=== PATIENT | male | born 1955 | race Caucasian/White ===

== ENCOUNTER 2018-12-31 23:05 | Inpatient (IN) ==
[2018-12-31] MEDS ORDERED: SODIUM CHLORIDE 0.9% 1000ML 1,000 ML IV ONE (23:36)
[2018-12-31] MEDS ORDERED: ONDANSETRON INJ 2 MG/ML 2 ML VIAL IV STA (23:36)
[2018-12-31] MEDS ORDERED: PROMETHAZINE 25 MG/51 ML BAG IV STA (23:36)
[2018-12-31 23:55] LABS: Hemoglobin 12.1 g/dL (14.0-18.0); Immature Granulocytes # (auto) 0.02 K/uL (0.00-0.02); Immature Granulocytes % (auto) 0.2 %; Lymphocytes # (auto) 0.75 K/uL (1.2-3.4); Lymphocytes % (auto) 9.2 %; Mean Corpuscular Hemoglobin 28.5 pg (25-34); Mean Corpuscular Hgb Conc 36.7 g/dL (32-36); Mean Corpuscular Volume 77.6 fL (80-100); Mean Platelet Volume 8.9 fL (7.4-10.4); Monocytes # (auto) 0.73 K/uL (0.11-0.59); Neutrophils # (auto) 6.61 K/uL (1.4-6.5); Neutrophils % (auto) 81.6 %; Platelet Count 196 K/uL (130-400); RDW Coefficient of Variation 12.9 % (11.5-14.5); RDW Standard Deviation 36.4 fL (36.4-46.3); Red Blood Count 4.25 M/uL (4.7-6.1); White Blood Count 8.11 K/uL (4.8-10.8)
[2019-01-01 00:27] LABS: Alanine Aminotransferase 51 U/L (12-78); Albumin Level 3.3 gm/dl (3.4-5.0); Alkaline Phosphatase 96 U/L (45-117); Bilirubin,Total 2.5 mg/dl (0.2-1); Blood Urea Nitrogen 13 mg/dl (7-18); Calcium 8.4 mg/dl (8.5-10.1); Carbon Dioxide 25 mmol/L (21-32); Chloride 74 mmol/L (98-107); Creatinine Clr Calc Pharmacy 99.9 ml/min; Est GFR (African American) 102.9; Est GFR (Non-African American) 88.8; Glucose 126 mg/dl (70-99); Lipase 52 U/L (73-393); Sodium 110 mmol/L (136-145); Troponin I < 0.015 ng/ml (0-0.045)
[2019-01-01 01:07] LABS: Bilirubin Direct 0.7 mg/dl (0-0.2); Potassium 3.7 mmol/L (3.5-5.1)
[2019-01-01] MEDS ORDERED: LORazepam 1 MG/2 ML VIAL IV STA (01:07)
[2019-01-01] MEDS ORDERED: IOVERSOL 100ml IV PRN (01:22)
[2019-01-01] MEDS ORDERED: HALOPERIDOL LACTATE 5 MG/ML 1 ML VIAL IM STA ×2 (02:00→02:52)
[2019-01-01] MEDS: HALOPERIDOL LACTATE 5 MG/ML 1 ML VIAL ONE ×2 (02:05→02:54)
--- NOTE | 2019-01-01 02:29 | History & Physical Report ---
Date of Service January 01, 2019 Assessment & Plan (1) Hypo-osmolality and hyponatremia: Hyponatremia with hypoosmolality/confusion- CT of head negative. CT abdomen and pelvis negative. Serum sodium level 110. Serum osmolality 235. Urine osmolality is pending. Symptoms of confusion began after what sounds like a viral gastroenteritis. Main differential is polydipsia versus SIADH. He was given 1 L normal saline in the ED. Unable to take oral medications at this time so we will keep n.p.o. Place on 2% saline IV at 150 mils per hour. Serial BMP every 4 hours. One-on-one observation. Admit to monitored bed. Present on Admission?: Yes (2) AMS (altered mental status): See above Present on Admission?: Yes History of Present Illness Chief Complaint: The patient presents to the emergency department with worsening confusion that began 5 days previously, following a brief illness with nausea, vomiting and diarrhea. Primary Care Provider: NO PCP The patient is a 63-year-old male with a past medical history including reactive airway disease, hypersomnolence, hyperlipidemia, arthritis and cough, who presents to the emergency department with progressively worsening confusion and inability to follow commands over the past 5 days, following an acute episode of abdominal discomfort, nausea, vomiting and diarrhea. The patient himself was not able to contribute to either review of systems or HPI, due to underlying confusion, and his is the primary source of this information. Allergies Allergy/AdvReac Type Severity Reaction Status Date / Time naproxen [From Naprosyn] Allergy Verified 10/06/18 11:20 Home Medications Home Medications Medication Instructions Recorded Confirmed Type No Known Home Medications 01/01/19 01/01/19 History Past Med/Surg History Medical History Screening for lipid disorders Snoring Reactive airway disease Hypersomnolence Hyperlipemia Excessive daytime sleepiness PASTOR (dyspnea on exertion) Cough Arthritis Arthritis Lentigo maligna Severe obstructive sleep apnea Skin lesion of left arm Surgical History H/O colonoscopy History of surgery on arm Family History Father Cancer Sister Ovarian cancer Family/Other Diabetes Social History Preferred Language: Ecuadorean marital status: Feels Safe at Home: Yes Smoking Status: Never smoker Hx Substance Use: No Review of Systems Review of Systems: Unobtainable due to cognitive status Physical Exam Physical Exam: The patient is awake, confused, well developed and well nourished, normocephalic and atraumatic, lying in bed and in no acute distress. HEENT--PERRL, EOMI, mucous membranes and oropharynx dry. Neck--supple. No JVD. No bruits. Thyroid normal, trachea midline, no adenopathy. Heart--normal S1 and S2. No murmurs, rubs or gallops. Lungs--clear bilaterally, no respiratory distress, no accessory muscle use. Abdomen--normal bowel sounds and soft. Nontender. Nondistended. Diastasis recti. Extremities--no cyanosis or clubbing. No edema. There are good distal pulses b/l. Dermatologic--normal skin turgor, normal color, no abnormal lymph nodes, no rash. Neurologic--cranial nerves II through XII grossly intact. Rheumatologic--normal range of motion. Psychiatric--confused and lethargic. Limited ability to follow commands Results & Data Vital Signs (Past 12 Hours) Vital Signs Temp Pulse Pulse Resp BP BP Pulse Ox 01/01/19 01:38 101 H 24 153/69 H 01/01/19 00:19 101 H 20 132/76 96 12/31/18 23:12 97.3 F L 108 H 18 124/78 100 Laboratory Results Laboratory Results WBC 8.11 K/uL (4.8-10.8) 12/31/18 23:39 RBC 4.25 M/uL (4.7-6.1) L 12/31/18 23:39 Hgb 12.1 g/dL (14.0-18.0) L 12/31/18 23:39 Hct 33.0 % (42-52) L 12/31/18 23:39 MCV 77.6 fL (80-100) L 12/31/18 23:39 MCH 28.5 pg (25-34) 12/31/18 23:39 MCHC 36.7 g/dL (32-36) H 12/31/18 23:39 RDW Std Deviation 36.4 fL (36.4-46.3) 12/31/18 23:39 RDW Coeff of Ranjit 12.9 % (11.5-14.5) 12/31/18 23:39 Plt Count 196 K/uL (130-400) 12/31/18 23:39 MPV 8.9 fL (7.4-10.4) 12/31/18 23:39 Immature Gran % (Auto) 0.2 % 12/31/18 23:39 Neut % (Auto) 81.6 % 12/31/18 23:39 Lymph % (Auto) 9.2 % 12/31/18 23:39 [place] % (Auto) 9.0 % 12/31/18 23:39 Eos % (Auto) 0.0 % 12/31/18 23:39 Baso % (Auto) 0.0 % 12/31/18 23:39 Immature Gran # (Auto) 0.02 K/uL (0.00-0.02) 12/31/18 23:39 Neut # (Auto) 6.61 K/uL (1.4-6.5) H 12/31/18 23:39 Lymph # (Auto) 0.75 K/uL (1.2-3.4) L 12/31/18 23:39 [place] # (Auto) 0.73 K/uL (0.11-0.59) H 12/31/18 23:39 Eos # (Auto) 0.00 K/uL (0-0.5) 12/31/18 23:39 Baso # (Auto) 0.00 K/uL (0-0.2) 12/31/18 23:39 Sodium 110 mmol/L (136-145) L* 12/31/18 23:39 Potassium 3.7 mmol/L (3.5-5.1) 01/01/19 00:41 Chloride 74 mmol/L (98-107) L 12/31/18 23:39 Carbon Dioxide 25 mmol/L (21-32) 12/31/18 23:39 Anion Gap 12.0 (3-11) H 12/31/18 23:39 BUN 13 mg/dl (7-18) 12/31/18 23:39 Creatinine 0.92 mg/dl (0.6-1.4) 12/31/18 23:39 Est Cr Clr Drug Dosing 99.9 ml/min 12/31/18 23:39 Est GFR ( Amer) 102.9 12/31/18 23:39 Est GFR (Non-Af Amer) 88.8 12/31/18 23:39 BUN/Creatinine Ratio 14.0 (10-20) 12/31/18 23:39 Glucose 126 mg/dl (70-99) H 12/31/18 23:39 Osmolality 235 mOsm/kg (280-300) L* 01/01/19 00:40 Calcium 8.4 mg/dl (8.5-10.1) L 12/31/18 23:39 Total Bilirubin 2.5 mg/dl (0.2-1) H 12/31/18 23:39 Direct Bilirubin 0.7 mg/dl (0-0.2) H 01/01/19 00:41 AST 62 U/L (15-37) H 01/01/19 00:41 ALT 51 U/L (12-78) 12/31/18 23:39 Alkaline Phosphatase 96 U/L (45-117) 12/31/18 23:39 Troponin I < 0.015 ng/ml (0-0.045) 12/31/18 23:39 Total Protein 7.0 gm/dl (6.4-8.2) 12/31/18 23:39 Albumin 3.3 gm/dl (3.4-5.0) L 12/31/18 23:39 Lipase 52 U/L (73-393) L 12/31/18 23:39 Diagnostic Findings [facility] Patient: JOSEPH PASTOR (Male) Age: 63 MR #: [id number] Status: ER Date: 01/01/19 01:21 Slices: 130 History: AMS, VOMITING AND DIARRHEA FOR 3 DAYS Priors: Tech: Justino Kinsey @ [phone] Exams: CT HEAD Accession Numbers: [id number] Preliminary Findings Only See Final Report For Complete Findings CT HEAD: No acute intracranial hemorrhage, extra-axial fluid collection, edema, mass effect, or ischemic infarct. No fracture. The paranasal sinuses and mastoid air cells are clear. Radiologist: Karan Rodgers MD Study ready at 01:25 and initial results transmitted at 01:28 *This report constitutes a preliminary interpretation only. Non-acute findings felt to be unrelated to the clinical presentation may not be discussed in this report. The study will be interpreted and a final report will be generated by the local Radiologist the following shift. To reach the hospital radiology department call [phone]. If a discrepancy is found between the preliminary and final interpretations of this study, please notify us via our Client Portal at [email or web address].You can also fax this report with a description of the discrepancy, or include the final report, to our daytime fax number [phone].If faxing, please indicate the severity of discrepancy using one of the following categories: [ ] 1 - Agree/Informational [ ] 2 - Unlikely to Affect Management [ ] 3 - Possible Eventual Change of Management [ ] 4 - Probable Immediate Change of Management For all other patient related information, please fax us at [phone]. [id number] [facility] Patient: JOSEPH PASTOR (Male) Age: 63 MR #: [id number] Status: ER Date: 01/01/19 01:21 Slices: 534 History: VOMITING AND DIARRHEA FOR 3 DAYS, AMS Priors: Tech: Justino Kinsey @ [phone] Exams: CT ABDOMEN & PELVIS With Contrast Contrast: IV Amt: 93 ML OPTIRAY 320 Accession Numbers: [id number] Preliminary Findings Only See Final Report For Complete Findings CT ABDOMEN & PELVIS With Contrast: No mucosal inflammatory changes along the GI tract. Minimal colonic diverticulosis without diverticulitis. Normal appendix. The liver, gallbladder, pancreas, spleen, adrenal glands, and kidneys are unremarkable. Radiologist: Karan Rodgers MD Study ready at 01:25 and initial results transmitted at 01:30 *This report constitutes a preliminary interpretation only. Non-acute findings felt to be unrelated to the clinical presentation may not be discussed in this report. The study will be interpreted and a final report will be generated by the local Radiologist the following shift. To reach the hospital radiology department call [phone]. If a discrepancy is found between the preliminary and final interpretations of this study, please notify us via our Client Portal at [email or web address].You can also fax this report with a description of the discrepancy, or include the final report, to our daytime fax number [phone].If faxing, please indicate the severity of discrepancy using one of the following categories: [ ] 1 - Agree/Informational [ ] 2 - Unlikely to Affect Management [ ] 3 - Possible Eventual Change of Management [ ] 4 - Probable Immediate Change of Management For all other patient related information, please fax us at [phone]. [id number] Code Status & VTE Plan Code Status Full code VTE Prophylaxis Plan VTE Prophylaxis will be ordered: Yes PG Care Time/CCT Total # of Minutes Spent Total Time Spent with Patient: Total time spent is greater than 50% in coordination of care (as documented) at patient's floor/unit and/or counseling patient: (1) AMS (altered mental status) Altered mental status type: unspecified Qualified Code(s): R41.82 - Altered mental status, unspecified
[2019-01-01] MEDS: WATER IV SCH ×2 (02:35→10:25)
[2019-01-01] MEDS: STERILE IV SCH ×2 (02:35→10:25)
[2019-01-01] MEDS: SODI CHLOR IV SCH ×2 (02:35→10:25)
[2019-01-01] MEDS ORDERED: ONDANSETRON INJ 2 MG/ML 2 ML VIAL IV PRN (03:26)
[2019-01-01 03:58] LABS: Appearance Urine Clear (Clear); Bacteria Urine Automated Negative (Negative); Bilirubin Urine Negative (Negative); Blood Urine Negative (Negative); Color Urine Dark Yellow; Glucose Urine UA Negative (Negative); Ketones Urine 1+ (Negative); Leukocyte Esterase Urine Negative (Negative); Nitrite Urine Negative (Negative); Protein Urine Trace (Negative); RBC Urine Automated 0-4 /hpf (0-4); Specific Gravity Urine 1.045 (1.000-1.030); Urobilinogen Urine Negative (Negative); pH Urine 6.5 (4.5-7.5)
--- NOTE | 2019-01-01 04:23 | Emergency Department Note ---
Entered by Jarret Zapata acting as a scribe for Eric Moreno MD ED Provider Note Name: Mason Gonzalez Age: 63, male Arrives Via: Walk in Informant: Patient CC: Vomiting HPI: The patient is a 63 year old male who presents to the emergency department with complaints of persistent vomiting beginning a few days ago. The patient states that he started having diarrhea a few days ago. He notes that he was having diarrhea for 3 days, but he denies any diarrhea tonight. He reports that he then started vomiting a few days ago, and he states that his vomiting worsened tonight. He notes that he did eat a lot of fast food a few days ago. He also complains of dizziness, weakness, SOB, abdominal pain, and dark urine. He reports that he gets lightheaded when he stands up, and he states that he fell today. He notes that he did not hit his head at that time. He denies any rash. He reports that he went to [facility] 2 days ago, and he states that he was prescribed Zofran. He notes that he has not been taking the Zofran as it makes him more nauseous. He reports that he has not had any recent changes in his medications. ROS: See above HPI for pertinent positives & negatives. A total of 10 systems reviewed and were otherwise negative. Past Medical History: Reactive airway disease, arthritis Past Surgical History: Colonoscopy Family History: Cancer, diabetes Social History: , lives with family, never smoker, does not use drugs Home Medications: Albuterol Allergies: Naproxen Physical: Vitals: BP 132/76, Pulse 101, Resp 20, Temp 97.3 F, O2 Sat 96 Exam: GENERAL: Patient is significantly dehydrated and unwell appearing. Constant hiccups. EYES: No scleral icterus, unremarkable pupils. ENT: Mucous membranes dry, no nasal congestion. NECK: No masses appreciated, no meningismus, trachea is midline. RESPIRATORY: No dyspnea. No wheeze, no rhonchi. Crackles to the bilateral lower lungs. CARDIOVASCULAR: Regular rate and rhythm. No rubs and gallops appreciated. Systolic murmur noted. GASTROINTESTINAL: Abdomen soft, non-tender, no peritonitis. Bowel sounds positive. No masses appreciated. BACK: No midline tenderness, no CVA tenderness EXTREMITIES: Normal motion all extremities, no cyanosis, no edema. NEUROLOGIC: Alert and oriented, no acute motor or sensory deficits, no focal weakness, cranial nerves grossly intact. SKIN: No rash, no jaundice, no diaphoresis. ED Course: Prior Medical Record, Triage/Nursing Notes, Medications, Allergies reviewed by Me 2331: The patient was evaluated in room B3. A complete history and physical exam was performed. 0035: I reevaluated and updated the patient. He is acting increasingly altered after receiving Zofran and Phenergan. His sodium returned at 110. Further labs and CT were ordered. 0120: Upon reevaluation, the patient is stable. I discussed the findings and the treatment plan with the patient. He expresses agreement and understanding. I spo ke with Dr. Phan of the [facility] Hospitalist Service. The patient will be evaluated for further management. Vital Signs: reviewed and remarkable for wnl Labs: Reviewed and remarkable for hyponatremia Interventions: saline lock, phenergan 25mg IV, zofran 4mg IV, NSS bolus 1 L IV, Ativan 1mg IV Imaging: CHEST X-RAY:X ray results are stated below per my interpretation: Chest: 1 view: No infiltrate, no effusion, normal cardiac border. CT ABDOMEN & PELVIS With Contrast: No mucosal inflammatory changes along the GI tract. Minimal colonic diverticulosis without diverticulitis. Normal appendix. The liver, gallbladder, pancreas, spleen, adrenal glands, and kidneys are unremarkable. Radiologist: Karan Rodgers MD. CT HEAD: No acute intracranial hemorrhage, extra-axial fluid collection, edema, mass effect, or ischemic infarct. No fracture. The paranasal sinuses and mastoid air cells are clear. Radiologist: Karan Rodgers MD. Consults: 0120: I reviewed the patient's case with Dr. Phan - Hospitalist, [facility] [place]. He will evaluate the patient for further management. Blood pressure: Elevated - Will be further monitored by hospitalist. Disposition: Hospitalization Differentials: Differential: Gastroenteritis, Food Borne, Esophageal Perforation, , Electrolyte Abnormality, Dehydration, Intraabdominal Infection, UTI/Pyelonephritis, Bowel Obstruction, Biliary Pathology, amongst other pathology entertained. Medical Decision Makin r old previous healthy male with known RAD/Asthma, sleep apnea, hyperlipidemia arrives for worsening nausea, vomiting, diarrhea and generalized weakness. confirms confusion over the last day or so and not acting himself. He is unwell on arrival and labs obtained. Given zofran and phenergan on arrival for severe nausea. Following this with confusion worsening and agitation. Did require ativan to get CT done. Severe hyponatremia found. CT head/abdomen unremarkable. Hospitalist involved early in care of patient. on board with plan and hospitalization. Unclear etiology of hyponatremia but would expect siadh. LFTs mildly elevated which with normal CT likely due to vomiting but will need further work-up evaluation. Impression: Acute hyponatremia AMS Eric Moreno MD The scribe's documentation has been prepared under my direction and personally reviewed by me in its entirety. I confirm that the note above accurately refle cts all work, treatment, procedures, and medical decision making performed by me. 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 Beliefs That Will Affect Care: None marital status: Current Living Situation: Spouse Other Information That Helps Us Care for You: No Feels Safe at Home: Yes Safety Concerns: Feels Safe At This Time Smoking Status: Never smoker Hx Substance Use: No Results & Data Vital Signs Vital Signs - 24 hr 12/31/18 23:12 01/01/19 00:19 01/01/19 01:38 Temperature 36.3 C L Temperature Source Oral Sepsis Recent Fever Within 48 Hours No Sepsis New/Unexplained Change in Mental Status No Sepsis Action Taken by Nursing No Action Required Pulse Rate 108 H Pulse Rate [Right Finger] 101 H 101 H Respiratory Rate 18 20 24 Blood Pressure 124/78 Blood Pressure [Left Arm] 132/76 153/69 H Blood Pressure Mean 93 Blood Pressure Mean [Left Arm] 94 97 Pulse Oximetry 100 96 Oxygen Delivery Method Room Air Home Medications Current Medication List: was personally reviewed by me Laboratory Data Attestation: I reviewed the patient's lab results. Result diagrams: 12/31/18 23:39 01/01/19 00:41 Lab Results 12/31/18 12/31/18 01/01/19 Range/Units 23:39 23:39 00:40 WBC 8.11 (4.8-10.8) K/uL RBC 4.25 L (4.7-6.1) M/uL Hgb 12.1 L (14.0-18.0) g/dL Hct 33.0 L (42-52) % MCV 77.6 L (80-100) fL MCH 28.5 (25-34) pg MCHC 36.7 H (32-36) g/dL RDW Std Deviation 36.4 (36.4-46.3) fL RDW Coeff of Ranjit 12.9 (11.5-14.5) % Plt Count 196 (130-400) K/uL MPV 8.9 (7.4-10.4) fL Immature Gran % (Auto) 0.2 % Neut % (Auto) 81.6 % Lymph % (Auto) 9.2 % [place] % (Auto) 9.0 % Eos % (Auto) 0.0 % Baso % (Auto) 0.0 % Immature Gran # (Auto) 0.02 (0.00-0.02) K/uL Neut # (Auto) 6.61 H (1.4-6.5) K/uL Lymph # (Auto) 0.75 L (1.2-3.4) K/uL [place] # (Auto) 0.73 H (0.11-0.59) K/uL Eos # (Auto) 0.00 (0-0.5) K/uL Baso # (Auto) 0.00 (0-0.2) K/uL Sodium 110 L* (136-145) mmol/L Potassium (3.5-5.1) mmol/L Chloride 74 L (98-107) mmol/L Carbon Dioxide 25 (21-32) mmol/L Anion Gap 12.0 H (3-11) BUN 13 (7-18) mg/dl Creatinine 0.92 (0.6-1.4) mg/dl Est Cr Clr Drug Dosing 99.9 ml/min Est GFR ( Amer) 102.9 Est GFR (Non-Af Amer) 88.8 BUN/Creatinine Ratio 14.0 (10-20) Glucose 126 H (70-99) mg/dl Osmolality 235 L* (280-300) mOsm/kg Calcium 8.4 L (8.5-10.1) mg/dl Total Bilirubin 2.5 H (0.2-1) mg/dl Direct Bilirubin (0-0.2) mg/dl AST TNP ALT 51 (12-78) U/L Alkaline Phosphatase 96 (45-117) U/L Troponin I < 0.015 (0-0.045) ng/ml Total Protein 7.0 (6.4-8.2) gm/dl Albumin 3.3 L (3.4-5.0) gm/dl Lipase 52 L (73-393) U/L 01/01/19 Range/Units 00:41 WBC (4.8-10.8) K/uL RBC (4.7-6.1) M/uL Hgb (14.0-18.0) g/dL Hct (42-52) % MCV (80-100) fL MCH (25-34) pg MCHC (32-36) g/dL RDW Std Deviation (36.4-46.3) fL RDW Coeff of Ranjit (11.5-14.5) % Plt Count (130-400) K/uL MPV (7.4-10.4) fL Immature Gran % (Auto) % Neut % (Auto) % Lymph % (Auto) % [place] % (Auto) % Eos % (Auto) % Baso % (Auto) % Immature Gran # (Auto) (0.00-0.02) K/uL Neut # (Auto) (1.4-6.5) K/uL Lymph # (Auto) (1.2-3.4) K/uL [place] # (Auto) (0.11-0.59) K/uL Eos # (Auto) (0-0.5) K/uL Baso # (Auto) (0-0.2) K/uL Sodium (136-145) mmol/L Potassium 3.7 (3.5-5.1) mmol/L Chloride (98-107) mmol/L Carbon Dioxide (21-32) mmol/L Anion Gap (3-11) BUN (7-18) mg/dl Creatinine (0.6-1.4) mg/dl Est Cr Clr Drug Dosing ml/min Est GFR ( Amer) Est GFR (Non-Af Amer) BUN/Creatinine Ratio (10-20) Glucose (70-99) mg/dl Osmolality (280-300) mOsm/kg Calcium (8.5-10.1) mg/dl Total Bilirubin (0.2-1) mg/dl Direct Bilirubin 0.7 H (0-0.2) mg/dl AST 62 H ALT (12-78) U/L Alkaline Phosphatase (45-117) U/L Troponin I (0-0.045) ng/ml Total Protein (6.4-8.2) gm/dl Albumin (3.4-5.0) gm/dl Lipase (73-393) U/L Administered Medications Sodium Chloride 340 meq/ (Sterile Water) 1,136 mls @ 150 mls/hr IV .[id number] ELLEN Stop: 01/31/19 02:14 Last Admin: 01/01/19 02:35 Dose: 150 mls/hr Documented by: [id number] Ioversol (Optiray 320 100ml) 100 ml IV ONCE PRN PRN Reason: Interaction Checking Stop: 01/05/19 01:21 Last Admin: 01/01/19 01:22 Dose: 93 ml Documented by: [id number] Discontinued Medications Haloperidol Lactate (Haldol) 5 mg IM NOW STA Stop: 01/01/19 02:01 Last Admin: 01/01/19 02:05 Dose: 5 mg Documented by: [id number] Haloperidol Lactate (Haldol) Confirm Administered Dose 5 mg .ROUTE .STK-MED ONE Stop: 01/01/19 02:04 Last Admin: 01/01/19 02:54 Dose: Not Given Documented by: [id number] Haloperidol Lactate (Haldol) 5 mg IM NOW STA Stop: 01/01/19 02:53 Last Admin: 01/01/19 02:54 Dose: 5 mg Documented by: [id number] Promethazine HCl (Phenergan) 25 mg in 51 mls @ 204 mls/hr IV NOW STA Stop: 12/31/18 23:50 Last Infusion: 01/01/19 00:06 Dose: 0 mls/hr Documented by: [id number] Admin: 12/31/18 23:51 Dose: 204 mls/hr Documented by: [id number] Sodium Chloride (Nss 1000ml) 1,000 mls @ 999 mls/hr IV .Q1H1M ONE Stop: 01/01/19 00:36 Last Infusion: 01/01/19 04:12 Dose: 0 mls/hr Documented by: [id number] Admin: 12/31/18 23:51 Dose: 999 mls/hr Documented by: [id number] Lorazepam (Ativan) 1 mg in 2 mls @ 2 mls/min IV NOW STA Stop: 01/01/19 01:08 Last Admin: 01/01/19 01:22 Dose: 2 mls/min Documented by: [id number] Ondansetron HCl (Zofran) 4 mg IV NOW STA Stop: 12/31/18 23:37 Last Admin: 12/31/18 23:51 Dose: 4 mg Documented by: [id number] Medical Decision Making Home Medications Current Medication List: was personally reviewed by me Laboratory Data Attestation: I reviewed the patient's lab results. Result diagrams: 12/31/18 23:39 01/01/19 00:41 Lab Results 12/31/18 12/31/18 01/01/19 Range/Units 23:39 23:39 00:40 WBC 8.11 (4.8-10.8) K/uL RBC 4.25 L (4.7-6.1) M/uL Hgb 12.1 L (14.0-18.0) g/dL Hct 33.0 L (42-52) % MCV 77.6 L (80-100) fL MCH 28.5 (25-34) pg MCHC 36.7 H (32-36) g/dL RDW Std Deviation 36.4 (36.4-46.3) fL RDW Coeff of Ranjit 12.9 (11.5-14.5) % Plt Count 196 (130-400) K/uL MPV 8.9 (7.4-10.4) fL Immature Gran % (Auto) 0.2 % Neut % (Auto) 81.6 % Lymph % (Auto) 9.2 % [place] % (Auto) 9.0 % Eos % (Auto) 0.0 % Baso % (Auto) 0.0 % Immature Gran # (Auto) 0.02 (0.00-0.02) K/uL Neut # (Auto) 6.61 H (1.4-6.5) K/uL Lymph # (Auto) 0.75 L (1.2-3.4) K/uL [place] # (Auto) 0.73 H (0.11-0.59) K/uL Eos # (Auto) 0.00 (0-0.5) K/uL Baso # (Auto) 0.00 (0-0.2) K/uL Sodium 110 L* (136-145) mmol/L Potassium (3.5-5.1) mmol/L Chloride 74 L (98-107) mmol/L Carbon Dioxide 25 (21-32) mmol/L Anion Gap 12.0 H (3-11) BUN 13 (7-18) mg/dl Creatinine 0.92 (0.6-1.4) mg/dl Est Cr Clr Drug Dosing 99.9 ml/min Est GFR ( Amer) 102.9 Est GFR (Non-Af Amer) 88.8 BUN/Creatinine Ratio 14.0 (10-20) Glucose 126 H (70-99) mg/dl Osmolality 235 L* (280-300) mOsm/kg Calcium 8.4 L (8.5-10.1) mg/dl Total Bilirubin 2.5 H (0.2-1) mg/dl Direct Bilirubin (0-0.2) mg/dl AST TNP ALT 51 (12-78) U/L Alkaline Phosphatase 96 (45-117) U/L Troponin I < 0.015 (0-0.045) ng/ml Total Protein 7.0 (6.4-8.2) gm/dl Albumin 3.3 L (3.4-5.0) gm/dl Lipase 52 L (73-393) U/L 01/01/19 Range/Units 00:41 WBC (4.8-10.8) K/uL RBC (4.7-6.1) M/uL Hgb (14.0-18.0) g/dL Hct (42-52) % MCV (80-100) fL MCH (25-34) pg MCHC (32-36) g/dL RDW Std Deviation (36.4-46.3) fL RDW Coeff of Ranjit (11.5-14.5) % Plt Count (130-400) K/uL MPV (7.4-10.4) fL Immature Gran % (Auto) % Neut % (Auto) % Lymph % (Auto) % [place] % (Auto) % Eos % (Auto) % Baso % (Auto) % Immature Gran # (Auto) (0.00-0.02) K/uL Neut # (Auto) (1.4-6.5) K/uL Lymph # (Auto) (1.2-3.4) K/uL [place] # (Auto) (0.11-0.59) K/uL Eos # (Auto) (0-0.5) K/uL Baso # (Auto) (0-0.2) K/uL Sodium (136-145) mmol/L Potassium 3.7 (3.5-5.1) mmol/L Chloride (98-107) mmol/L Carbon Dioxide (21-32) mmol/L Anion Gap (3-11) BUN (7-18) mg/dl Creatinine (0.6-1.4) mg/dl Est Cr Clr Drug Dosing ml/min Est GFR ( Amer) Est GFR (Non-Af Amer) BUN/Creatinine Ratio (10-20) Glucose (70-99) mg/dl Osmolality (280-300) mOsm/kg Calcium (8.5-10.1) mg/dl Total Bilirubin (0.2-1) mg/dl Direct Bilirubin 0.7 H (0-0.2) mg/dl AST 62 H ALT (12-78) U/L Alkaline Phosphatase (45-117) U/L Troponin I (0-0.045) ng/ml Total Protein (6.4-8.2) gm/dl Albumin (3.4-5.0) gm/dl Lipase (73-393) U/L MDM Narrative Discharge Plan Visit Data Chief Complaint: Vomiting Stated Complaint: NAUSEA AND VOMITING FOR 4 DAYS ED Provider: Eric Moreno Discharge Problem: Acute hyponatremia, AMS (altered mental status) Patient Disposition: Being Evaluated by Hospitalist Discharge Instructions Interventions: ED Discharge Assessment Last Done: 01/01/19 03:04 Discharge Problem: AMS (altered mental status) Qualifiers: Altered mental status type: unspecified Qualified Code(s): R41.82 - Altered mental status, unspecified The scribe's documentation has been prepared under my direction and personally reviewed by me in its entirety. I confirm that the note above accurately reflects all work, treatment, procedures, and medical decision making performed by me.
[2019-01-01 04:28] LABS: Amphetamines+Metham, Urine Neg (Neg); Barbiturates, Urine Neg (Neg); Benzodiazepine, Urine Neg (Neg); Cocaine, Urine Neg (Neg); MDMA (Ecstacy), Urine Neg (Neg); Methadone, Urine Neg (Neg); Opiate, Urine Neg (Neg); Phencyclidine, Urine Neg (Neg)
[2019-01-01 04:39] LABS: BUN Creatinine Ratio 14.3 (10-20); Calcium 7.7 mg/dl (8.5-10.1); Est GFR (African American) 104.3; Potassium 3.7 mmol/L (3.5-5.1)
--- NOTE | 2019-01-01 06:44 | CT Scan Report ---
CT head/brain wo con CLINICAL HISTORY: 63 years-old Male with AMS. Acutely altered mental status TECHNIQUE: Multiple axial CT images of the head were obtained without contrast. A dose lowering tech nique was utilized adhering to the principles of ALARA. CT DOSE: 1375.95 mGy.cm COMPARISON: None. FINDINGS: Motion degraded exam. The study was then repeated which is also motion degraded. No acute intracrania l hemorrhage, midline shift, intracranial mass, hydrocephalus, territorial ischemia or abnormal extra -axial collection. The calvarium is intact. The paranasal sinuses, mastoid air cells, and middle ear cavities are clear . IMPRESSION: Motion degraded exam without acute intracranial abnormality identified. The above report was generated using voice recognition software. It may contain grammatical, syntax o r spelling errors. Electronically signed by: Kameron Pike M.D. 01/01/2019 6:42 AM
--- NOTE | 2019-01-01 07:24 | XRay Report ---
XR chest 1V portable CLINICAL HISTORY: 63 years-old Male presenting with cough, shortness of breath, altered mental status . TECHNIQUE: Portable upright AP view of the chest was obtained. COMPARISON: 06/13/2018. FINDINGS: Cardiac silhouette mildly enlarged. Bilateral hilar prominence is likely vascular. Mild pulmonary vas cular prominence in the upper lobes. No focal opacity. No large effusion or pneumothorax. Degenerativ e changes of the thoracic spine. Upper abdomen normal. IMPRESSION: 1. Mild cardiomegaly and volume overload. No advanced congestive change or pulmonary edema. Electronically signed by: Tal Kwok M.D. 01/01/2019 7:22 AM
--- NOTE | 2019-01-01 08:09 | CT Scan Report ---
CT abd pelvis IV con only CLINICAL HISTORY: 63 years-old Male presenting with abdominal distension, vomiting and diarrhea for 4 days, altered mental status, hyponatremia. TECHNIQUE: Multidetector CT of the abdomen and pelvis was performed after the administration of intra venous contrast. IV contrast: 93 mL of Optiray 320. One or more dose lowering techniques were used co nsistent with the principles of ALARA (as low as reasonably achievable), including automatic exposure control, mA or kV adjustment to individual patient size, and/or use of iterative reconstruction. COMPARISON: None. CT DOSE (mGy.cm): The estimated cumulative dose is 1113.33 mGy.cm. FINDINGS: Provider Relations Representative topogram: Unremarkable. Motion artifact and positioning of the arms at the sides mildly degrades diagnostic sensitivity the e xam. Lung bases: Mild multichamber enlargement of the heart. Coronary artery calcification. No pericardial or pleural effusion. Respiratory motion artifact degrades evaluation of the lung bases. Mild mosaic attenuation is suspected as well as mild pulmonary vascular prominence. Liver: Normal morphology. Density consistent with hepatic steatosis. No focal lesion. Patent hepatic vasculature. Biliary: No intrahepatic or extrahepatic biliary ductal dilatation. Grossly normal gallbladder. Motio n artifact makes assessment of gallbladder wall thickening limited. Pancreas: Mild parenchymal atrophy. Spleen: Normal. Adrenal glands: Normal. Kidneys and ureters: Few cysts noted. A hyperdense exophytic 2.2 cm lesion arising from the posterior aspect of the interpolar region of the right kidney is noted, indeterminate and possibly a hemorrhag ic or proteinaceous cyst. No hydronephrosis or nephrolithiasis. Ureters nondistended. Bladder: Normal. Pelvic organs: Prostate and seminal vesicles normal. The prostate is only partially visualized. Bowel: The anus is not visualized. Visualized portion of the rectum normal. A few diverticula in the proximal sigmoid colon. No associated wall thickening or inflammatory change. The appendix is normal. No bowel obstruction. The distal esophagus is mildly dilated with gas. No gross evidence of bowel wa ll thickening allowing for motion artifact degradation. Peritoneal cavity: No free fluid or intraperitoneal gas. Lymph nodes: No enlarged lymph nodes in the abdomen or pelvis. Vasculature: Atherosclerosis of the normal caliber abdominal aorta. IVC patent. Abdominal wall: Normal. Musculoskeletal: Degenerative changes of the spine, sacroiliac joints, and left hip. IMPRESSION: 1. Allowing for motion artifact, no acute intra-abdominal pathology. 2. Indeterminate 2.2 cm lesion in the right kidney, possibly hemorrhagic or proteinaceous cyst. This could be further evaluated with renal ultrasound. 3. Mild pulmonary vascular prominence. Electronically signed by: Tal Kwok M.D. 01/01/2019 8:08 AM
[2019-01-01] MEDS ORDERED: INFLUENZA VIRUS QUAD VACCINE 0.5 ML SYR IM ONE (08:15)
[2019-01-01] MEDS ORDERED: INFLUENZA ADMINISTRATION CHARGE ONE (08:15)
[2019-01-01 08:22] LABS: Calcium 7.8 mg/dl (8.5-10.1); Creatinine Clr Calc Pharmacy 107.8 ml/min; Est GFR (African American) 108.2; Est GFR (Non-African American) 93.4; Potassium 3.2 mmol/L (3.5-5.1)
[2019-01-01] MEDS: FAMOTIDINE 20 MG in SYRINGE 3 ML IV SCH ×2 (08:33→20:07)
[2019-01-01 12:34] LABS: BUN Creatinine Ratio 12.1 (10-20); Creatinine Clr Calc Pharmacy 90.7 ml/min; Est GFR (Non-African American) 79.3; Potassium 3.5 mmol/L (3.5-5.1)
--- NOTE | 2019-01-01 14:42 | Nephrology Consultation ---
Date of Consultation January 01, 2019 Assessment & Plan (1) Acute hyponatremia: Mason Gonzalez is a 63 y o M, otherwise healthy, admitted to the hospital with history of 4 days diarrhea, vomiting and found to have acute hyponatremia with high urine osmolality. Serum sodium rapidly improved with IV hydration 2% saline. Other workup including CT head, abdomen pelvis, chest x-ray was unremarkable. No history of loop or thiazide diuretic use. No personal history of malignancy. Hyponatremia most likely combination of volume depletion as well as high ADH state in the setting of vomiting and diarrhea. --discontinued 2% saline, encourage free water intake, repeat serum sodium in 2 hours. If serum sodium continues to go up, may need to start on D5. --continue checking serum sodium q.6 hours --avoid thiazide diuretics, NSAIDs Will follow Thank you for allowing me to participate in your patient's care. It was a pleasure to see Mason (2) AMS (altered mental status): History of Present Illness Reason for Consultation: Acute hyponatremia Attending Physician: Elliot Negrete History of Present Illness Mason Gonzalez is a 63-year-old gentlemen no significant past medical history except sleep apnea, admission to the hospital with acute hyponatremia. Nephrology consult was requested to manage acute hyponatremia. You may records are reviewed in detail during patient's visit. and daughter was at bedside. Mason started having diarrhea 4 days prior to admission followed by vomiting 2 days prior to admission. He was not able to keep anything down because of nausea and vomiting and was getting dehydrated. Went to [facility] and he was given Zofran but really did not help much. As he was getting weak, lethargic, he presented to the emergency room yesterday for further evaluation. On admission serum sodium was 110 with prior sodium all has been normal. Was started on to person cell in which was continued until noon today. Serum sodium rapidly increased to 117 over 12 hours. Urine osmolality was elevated at 612. Overall he started to feel better currently denies any specific symptoms. Denies headache, confusion, visual changes. No history of Hypertension, diabetes, CHF. Nonsmoker, recent chest x-ray was unremarkable. Denies excessive alcohol intake. CT head, A/P otherwise unremarkable except 2.2 cm right renal mass most likely proteinaceous versus hemorrhagic cyst. No history of hypothyroidism or adrenal insufficiency. Had colonoscopy before, unremarkable. No personal history of malignancy. Not on thiazide diuretics. Rare NSAID use. Renal function was normal, creatinine was 1.0, and all other electrolyte within normal limit. Urinalysis was negative for proteinuria, hematuria pyuria. Allergies Allergy/AdvReac Type Severity Reaction Status Date / Time naproxen [From Naprosyn] Allergy Verified 10/06/18 11:20 Home Medications Home Medications Medication Instructions Recorded Confirmed Type No Known Home Medications 01/01/19 01/01/19 History Patient History Medical History Screening for lipid disorders Snoring Reactive airway disease Hypersomnolence Hyperlipemia Excessive daytime sleepiness PASTOR (dyspnea on exertion) Cough Arthritis Arthritis Lentigo maligna Severe obstructive sleep apnea Skin lesion of left arm Surgical History H/O colonoscopy History of surgery on arm Family History Father Cancer Sister Ovarian cancer Family/Other Diabetes Social History Preferred Language: Uzbek Communication Ability: Impaired 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: No Beliefs That Will Affect Care: None marital status: Current Living Situation: Spouse Feels Safe at Home: Yes Smoking Status: Never smoker Hx Substance Use: No Review of Systems Review of Systems: All systems reviewed & are unremarkable except as noted in HPI & below Physical Exam Constitutional: well developed and well nourished; no acute distress Respiratory: normal respiratory effort, lungs clear to auscultation Cardiovascular: RRR, no murmur, no edema Neurologic: moves all extremities and awake; not confused Psychiatric: A+Ox3, euthymic affect Results & Data Vital Signs (Past 12 Hours) Vital Signs Temp Pulse Resp BP BP Pulse Ox Pulse Ox 01/01/19 11:57 36.9 C 99 H 18 121/83 99 01/01/19 07:17 36.8 C 78 20 109/68 97 01/01/19 03:53 36.6 C 90 22 111/79 98 01/01/19 03:52 36.6 C 80 22 111/79 98 98 01/01/19 02:52 111 H 26 H 108/74 94 PG Care Time/CCT Total # of Minutes Spent Total Time Spent with Patient: Total time spent is greater than 50% in coordination of care (as documented) at patient's floor/unit and/or counseling patient: (1) AMS (altered mental status) Altered mental status type: unspecified Qualified Code(s): R41.82 - Altered mental status, unspecified
[2019-01-01 16:19] LABS: BUN Creatinine Ratio 10.7 (10-20); Calcium 8.3 mg/dl (8.5-10.1); Creatinine Clr Calc Pharmacy 77.6 ml/min; Est GFR (African American) 76.2; Est GFR (Non-African American) 65.7; Potassium 3.6 mmol/L (3.5-5.1)
[2019-01-01] MEDS: DEXTROSE 5% 1,000 ML IV SCH (17:13)
[2019-01-01 19:55] LABS: Albumin Level 3.1 gm/dl (3.4-5.0); BUN Creatinine Ratio 11.3 (10-20); Calcium 8.4 mg/dl (8.5-10.1); Creatinine Clr Calc Pharmacy 75.1 ml/min; Est GFR (African American) 73.2; Est GFR (Non-African American) 63.1; Potassium 3.4 mmol/L (3.5-5.1)
[2019-01-01 20:02] LABS: Bilirubin,Total 1.2 mg/dl (0.2-1); Globulin 3.2 gm/dl (2.5-4.0); Phosphorus 1.6 mg/dl (2.5-4.9); Total Protein 6.3 gm/dl (6.4-8.2)
[2019-01-01 21:34] LABS: Albumin Level 3.4 gm/dl (3.4-5.0); BUN Creatinine Ratio 10.7 (10-20); Calcium 8.7 mg/dl (8.5-10.1); Est GFR (African American) 68.4; Potassium 3.6 mmol/L (3.5-5.1)
[2019-01-01 21:37] LABS: Albumin Globulin Ratio 0.9 (0.9-2); Bilirubin,Total 1.3 mg/dl (0.2-1); Globulin 3.7 gm/dl (2.5-4.0); Phosphorus 1.6 mg/dl (2.5-4.9); Total Protein 7.1 gm/dl (6.4-8.2)
[2019-01-02] MEDS: DEXTROSE 5% 1,000 ML IV SCH (06:31)
[2019-01-02 08:13] LABS: Hematocrit (blood only) 31.8 % (42-52); Hemoglobin 11.3 g/dL (14.0-18.0); Mean Corpuscular Hemoglobin 28.6 pg (25-34); Mean Corpuscular Hgb Conc 35.5 g/dL (32-36); Mean Corpuscular Volume 80.5 fL (80-100); Mean Platelet Volume 9.1 fL (7.4-10.4); Platelet Count 220 K/uL (130-400); RDW Coefficient of Variation 13.5 % (11.5-14.5); RDW Standard Deviation 40.1 fL (36.4-46.3); Red Blood Count 3.95 M/uL (4.7-6.1); White Blood Count 7.57 K/uL (4.8-10.8)
[2019-01-02 08:14] LABS: Albumin Level 2.9 gm/dl (3.4-5.0); BUN Creatinine Ratio 10.3 (10-20); Calcium 8.1 mg/dl (8.5-10.1); Creatinine Clr Calc Pharmacy 77.8 ml/min; Echinocytes 1+; Est GFR (African American) 84.8; Est GFR (Non-African American) 73.2; Potassium 3.1 mmol/L (3.5-5.1)
[2019-01-02 08:18] LABS: Albumin Globulin Ratio 0.9 (0.9-2); Bilirubin,Total 1.1 mg/dl (0.2-1); Globulin 3.4 gm/dl (2.5-4.0); Total Protein 6.3 gm/dl (6.4-8.2)
[2019-01-02] MEDS: FAMOTIDINE 20 MG in SYRINGE 3 ML IV SCH (08:31)
[2019-01-02] MEDS ORDERED: POTASSIUM CHLORIDE 20 MEQ TABCR PO STA (08:41)
[2019-01-02] MEDS ORDERED: DEXTROSE 5% 500 ML IV SCH (08:45)
--- NOTE | 2019-01-02 09:03 | Hospitalist Progress Note ---
Date of Service January 02, 2019 Assessment & Plan (1) Hypo-osmolality and hyponatremia: Hyponatremia with hypoosmolality/confusion- CT of head negative. CT abdomen and pelvis negative. Serum sodium level 110 at admission, increased to 130 this am. Patient was on d5 water overnight. D/W nephro. will hold D5 further. Patient appears to be stable. May consider discharge later today. (2) AMS (altered mental status): See above (3) Metabolic encephalopathy: Appears to have resolved. This was likely attributed to the patient's hyponatremia. Subjective Patient reports no new symptoms today. Review of Systems Review of Systems: All systems reviewed & are unremarkable except as noted in HPI & below Physical Exam Physical Exam: The patient is awake, well developed and well nourished, normocephalic and atraumatic, lying in bed and in no acute distress. HEENT--PERRL, EOMI, mucous membranes moist. Neck--supple. No JVD. No bruits. Thyroid normal, trachea midline, no adenopathy. Heart--normal S1 and S2. No murmurs, rubs or gallops. Lungs--clear bilaterally, no respiratory distress, no accessory muscle use. Abdomen--normal bowel sounds and soft. Nontender. Nondistended. Diastasis recti. Extremities--no cyanosis or clubbing. No edema. There are good distal pulses b/l. Dermatologic--normal skin turgor, normal color, no abnormal lymph nodes, no rash. Neurologic--cranial nerves II through XII grossly intact. Rheumatologic--normal range of motion. Psychiatric--AAOX3 Results & Data Vital Signs (Past 12 Hours) Vital Signs Temp Pulse Resp BP Pulse Ox 01/02/19 07:10 36.8 C 97 H 18 124/83 91 01/01/19 23:37 37.1 C 95 H 18 102/67 96 PG Care Time/CCT Total # of Minutes Spent Total Time Spent with Patient: Total time spent is greater than 50% in coordination of care (as documented) at patient's floor/unit and/or counseling patient: (1) AMS (altered mental status) Altered mental status type: unspecified Qualified Code(s): R41.82 - Altered mental status, unspecified
[2019-01-02 09:11] LABS: ALC (manual) 0.98 K/uL (1.2-3.4); Eosinophils # (manual) 0.08 K/uL (0-0.5); Lymphocytes # (manual) 0.98 K/uL (1.2-3.4); Monocytes # (manual) 0.91 K/uL (0.11-0.59)
[2019-01-02] MEDS ORDERED: POTASSIUM CHLORIDE 20 MEQ TABCR PO SCH (12:00)
--- NOTE | 2019-01-02 12:10 | Nephrology Progress Note ---
Date of Service January 02, 2019 Assessment & Plan (1) Acute hyponatremia: Mason Gonzalez is a 63 y o M, otherwise healthy, admitted to the hospital with history of 4 days diarrhea, vomiting and found to have acute hyponatremia with high urine osmolality. Serum sodium rapidly improved with IV hydration 2% saline. Other workup including CT head, abdomen pelvis, chest x-ray was unremarkable. No history of loop or thiazide diuretic use. No personal history of malignancy. Hyponatremia most likely combination of volume depletion as well as high ADH state in the setting of vomiting and diarrhea. --discontinue D5, avoid fluid restriction, encourage normal p.o. intake, check sodium every 12 hours. --avoid thiazide diuretics, NSAIDs Will follow (2) AMS (altered mental status): Dru Cuevas was seen and examined in his room this morning. Overall he is feeling better, denies any headache, confusion. No shortness of breath or chest pain. Serum sodium improved to 130 this morning with D5 over night. Review of Systems Review of Systems: All systems reviewed & are unremarkable except as noted in HPI & below Physical Exam Constitutional: WD/WN, vitals as above no acute distress Respiratory: normal respiratory effort, lungs clear to auscultation Cardiovascular: RRR, no murmur, no edema Skin: no rashes, warm and dry Neurologic: moves all extremities and awake; not confused Psychiatric: A+Ox3, euthymic affect Results & Data Vital Signs (Past 12 Hours) Vital Signs Temp Pulse Resp BP Pulse Ox 01/02/19 07:10 36.8 C 97 H 18 124/83 91 PG Care Time/CCT Total # of Minutes Spent Total Time Spent with Patient: Total time spent is greater than 50% in coordination of care (as documented) at patient's floor/unit and/or counseling patient: (1) AMS (altered mental status) Altered mental status type: unspecified Qualified Code(s): R41.82 - Altered mental status, unspecified
--- NOTE | 2019-01-04 07:45 | Discharge Summary ---
Date of Service January 02, 2019 Admission HPI Per Admitting Provider The patient is a 63-year-old male with a past medical history including reactive airway disease, hypersomnolence, hyperlipidemia, arthritis and cough, who presents to the emergency department with progressively worsening confusion and inability to follow commands over the past 5 days, following an acute episode of abdominal discomfort, nausea, vomiting and diarrhea. The patient himself was not able to contribute to either review of systems or HPI, due to underlying confusion, and his is the primary source of this information. Principal Diagnosis hypo-osmolality and hyponatremia Discharge Exam The patient is awake, well developed and well nourished, normocephalic and atraumatic, lying in bed and in no acute distress. HEENT--PERRL, EOMI, mucous membranes moist. Neck--supple. No JVD. No bruits. Thyroid normal, trachea midline, no adenopathy. Heart--normal S1 and S2. No murmurs, rubs or gallops. Lungs--clear bilaterally, no respiratory distress, no accessory muscle use. Abdomen--normal bowel sounds and soft. Nontender. Nondistended. Diastasis recti. Extremities--no cyanosis or clubbing. No edema. There are good distal pulses b/l. Dermatologic--normal skin turgor, normal color, no abnormal lymph nodes, no rash. Neurologic--cranial nerves II through XII grossly intact. Rheumatologic--normal range of motion. Psychiatric--AAOX3 Discharge Data Allergies Allergy/AdvReac Type Severity Reaction Status Date / Time naproxen [From Naprosyn] Allergy Verified 10/06/18 11:20 Consultations 01/01/19 01:49 ED Decision to Admit Stat 01/01/19 03:26 Consult Case Management - Discharge Planning Routine 01/01/19 11:26 Consult Nephrology Routine Ordered Studies 01/01/19 00:33 CT head/brain wo con Stat 01/01/19 01:01 CT abd pelvis IV con only Urgent Hospital Course (1) Hypo-osmolality and hyponatremia: Hyponatremia with hypoosmolality/confusion- CT of head negative. CT abdomen and pelvis negative. Serum sodium level 110 at admission, increased to 132 today. Patient was on d5 water overnight. D/W nephro. Patient appears to be stable. Ok for discharge, patient will get soidum levels drawn tomorrow in the AM. This episode was likely acute and due to his bout of nausea, vomiting and diarrhea, especially given his low urinary sodium and his above history. states she is ok for discharging patient. (2) AMS (altered mental status): See above Resolved. (3) Metabolic encephalopathy: Appears to have resolved. This was likely attributed to the patient's hyponatremia. Total Time Total Time Spent Total Time Spent (In Minutes): 35 Total Time Includes: Examination of the Patient, Discharge Planning, Medication Reconciliation and Communication With Other Providers Discharge Plan Discharge Items Patient Disposition: Home - Self-Care Reason For Visit: HYPONATREMIA WITH HYPOOSMOLALITY, CONFUSION Discharge Diagnosis: hyponatremia Activity: Resume your previous activity Non-emergency contact: Primary Care Provider Call non-emergency contact if: you have any medication questions Follow-up/Referrals: Narendra Shaikh MD [Primary Care Provider] - Diet: Regular Addtl Attending Provider Instructions: Recommend checking sodium tomorrow morning and morning. Ok to resume regular diet. Pending Studies at Discharge: No Stand-Alone [facility] [employer], Smoking Cessation Medications and DC Order Prescriptions: No Action No Known Home Medications RF: 0 Discharge Orders: Discharge Order (Routine); Ordered 01/02/19 Ordered By: Elliot Negrete Admission Data Admit Date/Time: 01/01/19 02:18 Attending Provider: Elliot Negrete Admit Provider: Ady Phan Primary Care Provider: Narendra Shaikh Other Providers: Ady Phan ; Sravanthi Anderson Other Interventions: Discharge Summary Assessment (RN) Last Done: 01/02/19 13:04 DC Date/Time DO NOT enter until pt leaves facility: 01/02/19 13:59
== END 2019-01-02 13:59 | disposition home or self-care (01) | DRG 640 ==
LOC: ED 23:05 → SUATTDRO 01-01 02:18 → 2S 01-01 02:18 → 4W 01-01 14:15

== ENCOUNTER 2022-10-18 17:08 | Inpatient (IN) ==
--- NOTE | 2022-10-18 17:46 | ED Triage Note ---
Date of Service October 18, 2022 History of Present Illness This patient was briefly evaluated while in triage. An abbreviated physical exam was performed. This patient is a 66-year-old Male who presents to the ED for evaluation of dehydration and diarrhea for past 3 days. Having at least a dozen episodes of watery diarrhea a day, no black or bloody stools. Feeling weak and run down. Had hyponatremia from similar symptoms in the past. No confusion per his . No pain currently. Having chills off and on, no known fevers. Nausea, no vomiting. Physical Exam CONSTITUTIONAL: No acute distress. Well appearing. RESPIRATORY: Clear to auscultation bilaterally. Equal expansion bilaterally. CARDIOVASCULAR: Regular rate and rhythm with no murmurs, rubs or gallops. Normal peripheral perfusion. GASTROINTESTINAL: Soft, nontender. Normal bowel sounds. NEUROLOGIC: Alert and oriented X 4 with normal affect. Initial orders for labs and / or imaging were placed and patient was placed in the waiting area until a bed is available. Please see further documentation for the full ED course.
[2022-10-18] MEDS ORDERED: SODIUM CHLORIDE 0.9% 1000ML 1,000 ML IV SCH (18:00)
[2022-10-18 20:44] LABS: Basophils # (auto) 0.04 K/uL (0-0.2); Basophils % (auto) 0.4 %; Hematocrit (blood only) 41.1 % (42.0-52.0); Hemoglobin 14.1 g/dl (14.0-18.0); Immature Granulocytes # (auto) 0.16 K/uL (0.01-0.20); Immature Granulocytes % (auto) 1.6 %; Lymphocytes # (auto) 1.76 K/uL (1.2-3.4); Lymphocytes % (auto) 17.4 %; Mean Corpuscular Hemoglobin 29.1 pg (25.0-34.0); Mean Corpuscular Hgb Conc 34.3 g/dL (32.0-36.0); Mean Corpuscular Volume 84.7 fL (80.0-100.0); Mean Platelet Volume 9.5 fL (9.4-12.4); Monocytes # (auto) 0.64 K/uL (0.11-0.59); Monocytes % (auto) 6.3 %; Neutrophils # (auto) 7.43 K/uL (1.40-6.50); Neutrophils % (auto) 73.3 %; Platelet Count 255 K/uL (130-400); RDW Coefficient of Variation 12.7 % (11.5-14.5); RDW Standard Deviation 38.8 fL (36.4-46.3); Red Blood Count 4.85 M/uL (4.70-6.10); White Blood Count 10.13 K/ul (4.8-10.8)
[2022-10-18 20:59] LABS: Adenovirus F 40/41 PCR Not Detected (NotDetected); Astrovirus PCR Not Detected (NotDetected); Campylobacter PCR Not Detected (NotDetected); Cryptosporidium PCR Not Detected (NotDetected); Cyclospora cayetanensis PCR Not Detected (NotDetected); Entamoeba histolytica PCR Not Detected (NotDetected); Enteroaggregative E.coli(EAEC) Not Detected (NotDetected); Enteropathogenic E.coli (EPEC) Not Detected (NotDetected); Enterotoxigenic E.coli (ETEC) Not Detected (NotDetected); Giardia lamblia PCR Not Detected (NotDetected); Norovirus GI/GII PCR Not Detected (NotDetected); Plesiomonas shigelloides PCR Not Detected (NotDetected); Rotavirus A PCR Not Detected (NotDetected); Salmonella PCR Not Detected (NotDetected); Sapovirus PCR Not Detected (NotDetected); Shiga-like Toxin E.coli (STEC) Not Detected (NotDetected); Shigella/Enteroinvasive E.coli Not Detected (NotDetected); Vibrio cholerae PCR Not Detected (NotDetected); Vibrio species PCR Not Detected (NotDetected); Yersinia enterocolitica PCR Not Detected (NotDetected)
[2022-10-18 21:14] LABS: Albumin Globulin Ratio 1.7 (0.9-2); Albumin Level 4.6 gm/dl (3.4-5.0); Bilirubin,Total 1.1 mg/dl (0.2-1.0); Calcium 8.9 mg/dl (8.6-10.3); Creatinine Clr Calc Pharmacy 88.9 ml/min; Est GFR (African American) 91.1 ml/min; Est GFR (Non-African American) 78.6 ml/min; Globulin 2.7 gm/dl (2.5-4.0); Potassium 4.2 mmol/L (3.5-5.1); Total Protein 7.3 gm/dl (6.0-8.3)
--- NOTE | 2022-10-18 23:24 | Emergency Department Note ---
Impression & Plan Diarrhea, Acute hyponatremia ED Provider Note HISTORY OF PRESENT ILLNESS: Patient is a 66-year-old male presenting with diarrhea and nausea for the last 3 days. Patient reports that 3 days ago he ate 3 hamburgers at [employer] and then started having symptoms. He reports multiple episodes of loose stool over the last 3 days. He denies any recent antibiotic use. Denies any recent travel or recent camping. Denies any recent sick contact exposures. Denies any fevers or chills at home. He reports feeling generally weak today. He has a prior history of diarrhea causing hyponatremia, prompting him to be evaluated today. Significant other at bedside reports that the patient is acting his normal self. Patient denies any chest pain or shortness of breath. Denies any abdominal pain ROS: as above PHYSICAL EXAM: Constitutional: Patient appears in no acute distress. HENT: Head: Normocephalic and atraumatic. Eyes: EOMI, PERRL Mouth/Throat: Mucous membranes moist. Neck: Trachea midline. Neck supple. Cardiovascular: RRR, No murmurs, rubs or gallops. Intact distal pulses. Pulmonary/Chest: No respiratory distress. Breath sounds clear and equal bilaterally. No wheezes or rales. Abdominal: Abdomen soft, no tenderness, rebound or guarding. Musculoskeletal: No edema, tenderness or deformity noted. Skin: Warm and dry. No rash, erythema, pallor or cyanosis Psychiatric: Appropriate mood and affect for situation. Neurological: Alert and keenly responsive. CN II-XII grossly intact, moving all extremities equally and fully. MDM: - Vitals signs showed hypertension - History obtained via patient. Patient presents with diarrhea and nausea. Symptoms been ongoing for the last 3 days. He reports having multiple episodes of loose stool over the last 3 days. He denies any chest pain or shortness of breath. Denies any abdominal pain. Denies any fevers. - Chronic conditions affecting care: CAD; HLD - Differential diagnoses include, but are not limited to: electrolyte abnormality; viral syndrome; colitis - Order placed for continuous cardiac monitoring. At this time, monitor showed rate of 80 bpm with normal sinus rhythm, per my interpretation. - External medical records reviewed. - EKG reviewed by myself showed normal sinus rhythm. Rate 84 bpm. QTc 449. No acute ischemic changes. - Laboratory workup interpreted by myself showed normal WBC; hyponatremia (Na 127); normal creatinine; normal lipase - C diff negative. - Stool cultures negative - Patient given 1L NS in ER. - Patient was in the emergency department waiting room for over 4 hours prior to being evaluated by myself. On assessment, he has a nontender abdomen and no reports of abdominal pain. So though CT scan of the abdomen pelvis was considered, it was not obtained - Discussion was had with social insurance specialist about patient's case and need for admission - Hospitalist, Dr. Brown, consulted for admission - [facility] ASSESSMENT AND PLAN: Diagnosis: diarrhea; hyponatremia Plan: admit Past Med/Surg History Medical History Allergic rhinitis Arthritis Back pain with radiculopathy CAD (coronary artery disease) Cardiac murmur Erectile dysfunction Heartburn Hyperlipemia Lentigo maligna Reactive airway disease Severe obstructive sleep apnea Surgical History Cancer H/O colonoscopy History of aortic valve replacement (~2020) History of esophagogastroduodenoscopy (EGD) History of hip replacement History of surgery on arm Hx of mitral valve repair (~2020) Family History Father Esophageal cancer Sister Ovarian cancer Grandmother Diabetes Mother Breast cancer Brother Leukemia Denies family history of Prostate cancer Myocardial infarction Colorectal cancer Hypertension Stroke Social History Smoking Status: Never smoker Tobacco Type: Cigarettes Age Started Using Tobacco: 13; Age Quit Using Tobacco: 27; packs per day: 1; Second Hand Exposure: No; Do You Dip or Chew Tobacco: No; Hx Alcohol Use: No Hx Substance Use: No Preferred Language: Belarusian Communication Ability: Effective Visual Impairment: Diminished Hearing Ability: Normal Geophysics Teacher Required: No Beliefs That Will Affect Care: None marital status: Current Living Situation: Spouse current occupational status: retired 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, 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 Feels Safe at Home: Yes Childhood Exposure to Second-Hand Smoke: Yes Diet: regular caffeine: Yes Dental Care, Regularly: Yes Physical Activity Frequency: Does not Exercise Seatbelt Use: always Sunscreen Use: No Do you think of yourself as: straight/heterosexual Assistive Devices: CPAP and Glasses Allergies Allergies Allergy/AdvReac Type Severity Reaction Status Date / Time amiodarone AdvReac Severe flat line Verified 10/18/22 16:11 Milk Containing Products AdvReac Mild GAS Verified 10/18/22 16:11 (Dairy) DIARRHEA [Milk Containing Products] naproxen [From Naprosyn] AdvReac Unknown stomach Verified 10/18/22 16:11 PAIN ondansetron [From Zofran] AdvReac Unknown disoriented Verified 10/18/22 16:11 /confusion Home Meds Home Medications Medication Instructions Recorded Confirmed ascorbic acid (vitamin C) 1,000 mg 2,000 - 4,000 mg PO QAM 04/17/20 10/18/22 tablet (Vitamin C) cetirizine 10 mg capsule (Zyrtec) 10 mg PO Q3D PRN Allergy Symptoms 04/17/20 10/18/22 metoprolol succinate 50 mg 50 mg PO DAILY 11/19/20 10/18/22 tablet,extended release 24 hr rosuvastatin 10 mg tablet (Crestor) 10 mg PO DAILY 11/19/20 10/18/22 amoxicillin 500 mg tablet 2,000 mg PO .UD 10/18/22 10/18/22 Previous Rx's Medication Instructions Recorded aspirin 81 mg chewable tablet 81 mg PO DAILY #30 tabs 07/08/20 sildenafil 50 mg tablet 50 mg PO DAILY PRN sexual activity 06/09/22 #10 tabs Results & Data (ED) Vital Signs Vital Signs - 24 hr 10/18/22 17:42 10/18/22 22:10 Temperature 36.5 C Temperature Source Temporal Artery Scan Pulse Rate 87 Pulse Rate [Finger] 79 Respiratory Rate 18 18 Respiratory Effort / Characteristics Non-Labored Non-Labored Spontaneous Respiratory Depth Normal Normal Blood Pressure 173/111 H Blood Pressure [Right Arm] 170/106 H Blood Pressure Mean 131 Blood Pressure Mean [Right Arm] 127 Pulse Oximetry 96 99 Oxygen Delivery Method Room Air Room Air Sepsis Recent Fever Within 48 Hours No Sepsis New/Unexplained Change in Mental Status No Sepsis Action Taken by Nursing No Action Required Laboratory Data 10/18/22 20:13 10/18/22 20:13 Lab Results 10/18/22 10/18/22 10/18/22 Range/Units 19:25 19:25 20:13 WBC 10.13 (4.8-10.8) K/ul RBC 4.85 (4.70-6.10) M/uL Hgb 14.1 (14.0-18.0) g/dl Hct 41.1 L (42.0-52.0) % MCV 84.7 (80.0-100.0) fL MCH 29.1 (25.0-34.0) pg MCHC 34.3 (32.0-36.0) g/dL RDW Std Deviation 38.8 (36.4-46.3) fL RDW Coeff of Ranjit 12.7 (11.5-14.5) % Plt Count 255 (130-400) K/uL MPV 9.5 (9.4-12.4) fL Immature Gran % (Auto) 1.6 % Neut % (Auto) 73.3 % Lymph % (Auto) 17.4 % Allen % (Auto) 6.3 % Eos % (Auto) 1.0 % Baso % (Auto) 0.4 % Neut # (Auto) 7.43 H (1.40-6.50) K/uL Lymph # (Auto) 1.76 (1.2-3.4) K/uL Allen # (Auto) 0.64 H (0.11-0.59) K/uL Eos # (Auto) 0.10 (0-0.50) K/uL Baso # (Auto) 0.04 (0-0.2) K/uL Immature Gran # (Auto) 0.16 (0.01-0.20) K/uL Sodium (136-145) mmol/L Potassium (3.5-5.1) mmol/L Chloride (98-107) mmol/L Carbon Dioxide (21-32) mmol/L Anion Gap (3-11) BUN (6-23) mg/dl Creatinine (0.6-1.4) mg/dl Est Cr Clr Drug Dosing ml/min Est GFR ( Amer) ml/min Est GFR (Non-Af Amer) ml/min BUN/Creatinine Ratio (10-20) Glucose (70-99(Fasting)) mg/dl Calcium (8.6-10.3) mg/dl Total Bilirubin (0.2-1.0) mg/dl AST (13-39) U/L ALT (7-52) U/L Alkaline Phosphatase (34-104) U/L Total Protein (6.0-8.3) gm/dl Albumin (3.4-5.0) gm/dl Globulin (2.5-4.0) gm/dl Albumin/Globulin Ratio (0.9-2) Lipase (11-82) U/L Stl C. cayetanensis PCR Not Detected (NotDetected) Stool Rotavirus A PCR Not Detected (NotDetected) Stl Adenov F 40/41 PCR Not Detected (NotDetected) Stool Astrovirus (PCR) Not Detected (NotDetected) Stool Campylobacter PCR Not Detected (NotDetected) Stl C. diff Tox B Gene Negative Cdiff Gene (Neg) Stool Cryptosporidium PCR Not Detected (NotDetected) Stl E.coli Shiga Tox PCR Not Detected (NotDetected) Stl Enterotoxigenic E PCR Not Detected (NotDetected) Stool EPEC (PCR) Not Detected (NotDetected) Stool EAEC (PCR) Not Detected (NotDetected) Stl E. histolytica PCR Not Detected (NotDetected) Stool Giardia Lamblia PCR Not Detected (NotDetected) Stool Salmonella PCR Not Detected (NotDetected) Stool Sapovirus (PCR) Not Detected (NotDetected) Stl P. shigelloides PCR Not Detected (NotDetected) Stl Shigella/EIEC PCR Not Detected (NotDetected) St Y.enterocolitica PCR Not Detected (NotDetected) Stool Vibrio (PCR) Not Detected (NotDetected) Stl Vibrio cholerae PCR Not Detected (NotDetected) Stl Norovirus GI/GII PCR Not Detected (NotDetected) 10/18/22 Range/Units 20:13 WBC (4.8-10.8) K/ul RBC (4.70-6.10) M/uL Hgb (14.0-18.0) g/dl Hct (42.0-52.0) % MCV (80.0-100.0) fL MCH (25.0-34.0) pg MCHC (32.0-36.0) g/dL RDW Std Deviation (36.4-46.3) fL RDW Coeff of Ranjit (11.5-14.5) % Plt Count (130-400) K/uL MPV (9.4-12.4) fL Immature Gran % (Auto) % Neut % (Auto) % Lymph % (Auto) % Allen % (Auto) % Eos % (Auto) % Baso % (Auto) % Neut # (Auto) (1.40-6.50) K/uL Lymph # (Auto) (1.2-3.4) K/uL Allen # (Auto) (0.11-0.59) K/uL Eos # (Auto) (0-0.50) K/uL Baso # (Auto) (0-0.2) K/uL Immature Gran # (Auto) (0.01-0.20) K/uL Sodium 127 L (136-145) mmol/L Potassium 4.2 (3.5-5.1) mmol/L Chloride 97 L (98-107) mmol/L Carbon Dioxide 23 (21-32) mmol/L Anion Gap 7 (3-11) BUN 13 (6-23) mg/dl Creatinine 1.00 (0.6-1.4) mg/dl Est Cr Clr Drug Dosing 88.9 ml/min Est GFR ( Amer) 91.1 ml/min Est GFR (Non-Af Amer) 78.6 ml/min BUN/Creatinine Ratio 13.0 (10-20) Glucose 98 (70-99(Fasting)) mg/dl Calcium 8.9 (8.6-10.3) mg/dl Total Bilirubin 1.1 H (0.2-1.0) mg/dl AST 23 (13-39) U/L ALT 22 (7-52) U/L Alkaline Phosphatase 67 (34-104) U/L Total Protein 7.3 (6.0-8.3) gm/dl Albumin 4.6 (3.4-5.0) gm/dl Globulin 2.7 (2.5-4.0) gm/dl Albumin/Globulin Ratio 1.7 (0.9-2) Lipase 13 (11-82) U/L Stl C. cayetanensis PCR (NotDetected) Stool Rotavirus A PCR (NotDetected) Stl Adenov F 40/41 PCR (NotDetected) Stool Astrovirus (PCR) (NotDetected) Stool Campylobacter PCR (NotDetected) Stl C. diff Tox B Gene (Neg) Stool Cryptosporidium PCR (NotDetected) Stl E.coli Shiga Tox PCR (NotDetected) Stl Enterotoxigenic E PCR (NotDetected) Stool EPEC (PCR) (NotDetected) Stool EAEC (PCR) (NotDetected) Stl E. histolytica PCR (NotDetected) Stool Giardia Lamblia PCR (NotDetected) Stool Salmonella PCR (NotDetected) Stool Sapovirus (PCR) (NotDetected) Stl P. shigelloides PCR (NotDetected) Stl Shigella/EIEC PCR (NotDetected) St Y.enterocolitica PCR (NotDetected) Stool Vibrio (PCR) (NotDetected) Stl Vibrio cholerae PCR (NotDetected) Stl Norovirus GI/GII PCR (NotDetected) Administered Medications Discontinued Medications Sodium Chloride (Nss 1000ml) 1,000 mls @ 999 mls/hr IV .Q1H1M ELLEN Stop: 10/18/22 19:00 Last Admin: 10/18/22 22:18 Dose: 999 mls/hr Documented By: LITTLE Discharge Plan Visit Data Chief Complaint: Illness Stated Complaint: REF BY DOC,DIARREAH,LIGHT HEADED,ARMS FEEL WEAK ED Provider: Jennifer Rogers Discharge Problem: Diarrhea, Acute hyponatremia Forms Stand Alone Forms: My [facility] Prescriptions Prescriptions: No Action sildenafil 50 mg tablet 50 mg PO DAILY PRN (Reason: sexual activity) Qty: 10 6RF Rx Instructions: administer 30 minutes to 4 hours before activity aspirin 81 mg tablet,chewable 81 mg PO DAILY Qty: 30 2RF metoprolol succinate 50 mg tablet extended release 24 hr 50 mg PO DAILY rosuvastatin [Crestor] 10 mg tablet 10 mg PO DAILY Zyrtec 10 mg Capsule 10 mg PO Q3D PRN (Reason: Allergy Symptoms) ascorbic acid (vitamin C) [Vitamin C] 1,000 mg Tablet 2,000 - 4,000 mg PO QAM amoxicillin 500 mg tablet 2,000 mg PO .UD Rx Instructions: TAKE THIS MED PRIOR TO EACH DENTAL APPOINTMENT Referrals Referrals: Aiden Foster, [Primary Care Provider] -
--- NOTE | 2022-10-18 23:47 | History & Physical Report ---
Date of Service October 18, 2022 Assessment & Plan (1) Diarrhea: Plan: Etiology uncertain. Infectious workup is negative including c. diff. Patient feels the diarrhea is improving - possibly started after eating at [email or web address]. Aside from hyponatremia, electrolytes are within normal range. No SHRUTI or evidence of severe dehydration -Monitor stool output -Immodium if persists (2) Acute hyponatremia: Plan: [id number], asymptomatic. Likely secondary to volume loss from diarrhea -NSS given in ER - continue NSS at 125mL/hr overnight -Repeat chemistry in AM (3) CAD (coronary artery disease): Plan: Chronic. Stable. Had cardiac catheterization performed 06/04/20 which revealed non-obstructive disease -Continue ASA, Metoprolol and Crestor History of Present Illness Chief Complaint: Profuse diarrhea, mild hyponatremia Primary Care Provider: Aiden Foster DO Sandro Gonzalez is a pleasant 66-year-old male with history of coronary artery disease, hypertension presenting with several days of profuse watery diarrhea as well as mild hyponatremia. Patient reports that he has had watery, nonbloody/nonmucoid diarrhea ongoing for the last 3 days. He has also had nausea with several episodes of nonbloody/nonbilious emesis. He has had decreased oral intake. He started feeling lightheaded with bilateral arm weakness which prompted him to see his PCP today. His PCP sent him to the ER. Of note, patient has a history of similar presentation in the past with profuse diarrhea. He was found to be profoundly dehydrated with severe hyponatremia, sodium at that time = 110. Otherwise, patient denies fever, chills, chest pain, cough, shortness of breath. Denies abdominal pain or tenderness. Denies urinary complaints. He feels that the diarrhea is improving slightly. He is passing gas. No additional complaints at this time Allergies Allergy/AdvReac Type Severity Reaction Status Date / Time amiodarone AdvReac Severe flat line Verified 10/18/22 23:32 Milk Containing Products AdvReac Mild GAS Verified 10/18/22 16:11 (Dairy) DIARRHEA [Milk Containing Products] naproxen [From Naprosyn] AdvReac Unknown stomach Verified 10/18/22 16:11 PAIN ondansetron [From Zofran] AdvReac Unknown disoriented Verified 10/18/22 16:11 /confusion Home Medications Medication Instructions Recorded Confirmed Type ascorbic acid (vitamin C) 1,000 mg 2,000 - 4,000 mg PO QAM 04/17/20 10/18/22 History tablet (Vitamin C) cetirizine 10 mg capsule (Zyrtec) 10 mg PO Q3D PRN Allergy Symptoms 04/17/20 10/18/22 History aspirin 81 mg chewable tablet 81 mg PO DAILY #30 tabs 07/08/20 10/18/22 Rx metoprolol succinate 50 mg 50 mg PO DAILY 11/19/20 10/18/22 History tablet,extended release 24 hr rosuvastatin 10 mg tablet (Crestor) 10 mg PO DAILY 11/19/20 10/18/22 History sildenafil 50 mg tablet 50 mg PO DAILY PRN sexual activity 06/09/22 10/18/22 Rx #10 tabs amoxicillin 500 mg tablet 2,000 mg PO .UD 10/18/22 10/18/22 History Past Med/Surg History Medical History Allergic rhinitis Arthritis Back pain with radiculopathy CAD (coronary artery disease) Cardiac murmur Patient reports h/o bicuspid valve being found many years ago; patient reports no echo for many years, not since initial discovery. Erectile dysfunction Heartburn Hyperlipemia Lentigo maligna Reactive airway disease VERY OCC USE INHALER Severe obstructive sleep apnea CPAP HS, was compliant up until recently acquired kitten started attacking him in his sleep while wearing CPAP. 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 H/O colonoscopy History of aortic valve replacement (~2020) 27mm Avalus tissue valve History of esophagogastroduodenoscopy (EGD) History of hip replacement Right [facility] History of surgery on arm REPAIR LACERATION Hx of mitral valve repair (~2020) Family History Father Esophageal cancer Sister Ovarian cancer Grandmother Diabetes Mother Breast cancer Brother Leukemia Denies family history of Prostate cancer Myocardial infarction Colorectal cancer Hypertension Stroke Social History Smoking Status: Never smoker Tobacco Type: Cigarettes Age Started Using Tobacco: 13; Age Quit Using Tobacco: 27; packs per day: 1; Second Hand Exposure: No; Do You Dip or Chew Tobacco: No; Hx Alcohol Use: No Hx Substance Use: No Preferred Language: Croatian Communication Ability: Effective Visual Impairment: Diminished Hearing Ability: Normal Philosophy Professor Required: No Beliefs That Will Affect Care: None marital status: Current Living Situation: Spouse current occupational status: retired 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, 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 [employer] Feels Safe at Home: Yes Childhood Exposure to Second-Hand Smoke: Yes Diet: regular caffeine: Yes Dental Care, Regularly: Yes Physical Activity Frequency: Does not Exercise Seatbelt Use: always Sunscreen Use: No Do you think of yourself as: straight/heterosexual Assistive Devices: CPAP and Glasses Review of Systems Review of Systems: All systems reviewed & are unremarkable except as noted in HPI & below Physical Exam Physical Exam: General: patient resting comfortably, NAD, non-toxic in appearance, AA&O x 4 Skin: warm, dry, intact, no rashes or lesions HEENT: NC/AT, PERRL, EOMI, anicteric sclera, conjunctiva without injection, external ear normal to inspection and nontender, nares patent, moist mucus membranes, dentition intact, no oropharyngeal lesions, neck supple, trachea midline, no LAD, no thyromegaly, no JVD Heart: +S1/S2, regular, no m/r/g Lungs: equal air entry bilaterally, no rales/rhonchi/wheezes Abd: +BS, soft, NT, mild distention, tympanic to percussion, no masses/organomegaly/ascites Ext: warm, 2+ pulses in UE/LE bilaterally, no clubbing/cyanosis or edema Neuro: nonfocal, patient AA&O x 4, speech intact, no facial droop, moving all extremities on command with equal strength 5/5 Results & Data Results & Data Vital Signs (Past 12 Hours) Vital Signs Temp Pulse Pulse Resp BP BP Pulse Ox 10/18/22 22:10 79 18 170/106 H 99 10/18/22 17:42 36.5 C 87 18 173/111 H 96 O2 Del Method 10/18/22 22:10 Room Air 10/18/22 17:42 Room Air Laboratory Results Laboratory Results WBC 10.13 K/ul (4.8-10.8) 10/18/22 20:13 RBC 4.85 M/uL (4.70-6.10) 10/18/22 20:13 Hgb 14.1 g/dl (14.0-18.0) 10/18/22 20:13 Hct 41.1 % (42.0-52.0) L 10/18/22 20:13 MCV 84.7 fL (80.0-100.0) 10/18/22 20:13 MCH 29.1 pg (25.0-34.0) 10/18/22 20:13 MCHC 34.3 g/dL (32.0-36.0) 10/18/22 20:13 RDW Std Deviation 38.8 fL (36.4-46.3) 10/18/22 20:13 RDW Coeff of Ranjit 12.7 % (11.5-14.5) 10/18/22 20:13 Plt Count 255 K/uL (130-400) 10/18/22 20:13 MPV 9.5 fL (9.4-12.4) 10/18/22 20:13 Immature Gran % (Auto) 1.6 % 10/18/22 20:13 Neut % (Auto) 73.3 % 10/18/22 20:13 Lymph % (Auto) 17.4 % 10/18/22 20:13 Ramsey % (Auto) 6.3 % 10/18/22 20:13 Eos % (Auto) 1.0 % 10/18/22 20:13 Baso % (Auto) 0.4 % 10/18/22 20:13 Neut # (Auto) 7.43 K/uL (1.40-6.50) H 10/18/22 20:13 Lymph # (Auto) 1.76 K/uL (1.2-3.4) 10/18/22 20:13 Ramsey # (Auto) 0.64 K/uL (0.11-0.59) H 10/18/22 20:13 Eos # (Auto) 0.10 K/uL (0-0.50) 10/18/22 20:13 Baso # (Auto) 0.04 K/uL (0-0.2) 10/18/22 20:13 Immature Gran # (Auto) 0.16 K/uL (0.01-0.20) 10/18/22 20:13 Sodium 127 mmol/L (136-145) L 10/18/22 20:13 Potassium 4.2 mmol/L (3.5-5.1) 10/18/22 20:13 Chloride 97 mmol/L (98-107) L 10/18/22 20:13 Carbon Dioxide 23 mmol/L (21-32) 10/18/22 20:13 Anion Gap 7 (3-11) 10/18/22 20:13 BUN 13 mg/dl (6-23) 10/18/22 20:13 Creatinine 1.00 mg/dl (0.6-1.4) 10/18/22 20:13 Est Cr Clr Drug Dosing 88.9 ml/min 10/18/22 20:13 Est GFR ( Amer) 91.1 ml/min 10/18/22 20:13 Est GFR (Non-Af Amer) 78.6 ml/min 10/18/22 20:13 BUN/Creatinine Ratio 13.0 (10-20) 10/18/22 20:13 Glucose 98 mg/dl (70-99(Fasting)) 10/18/22 20:13 Calcium 8.9 mg/dl (8.6-10.3) 10/18/22 20:13 Phosphorus 3.0 mg/dl (2.5-4.9) 10/18/22 20:13 Magnesium 1.9 mg/dl (1.7-2.4) 10/18/22 20:13 Total Bilirubin 1.1 mg/dl (0.2-1.0) H 10/18/22 20:13 AST 23 U/L (13-39) 10/18/22 20:13 ALT 22 U/L (7-52) 10/18/22 20:13 Alkaline Phosphatase 67 U/L (34-104) 10/18/22 20:13 Total Protein 7.3 gm/dl (6.0-8.3) 10/18/22 20:13 Albumin 4.6 gm/dl (3.4-5.0) 10/18/22 20:13 Globulin 2.7 gm/dl (2.5-4.0) 10/18/22 20:13 Albumin/Globulin Ratio 1.7 (0.9-2) 10/18/22 20:13 Lipase 13 U/L (11-82) 10/18/22 20:13 Stl C. cayetanensis PCR Not Detected (NotDetected) 10/18/22 19:25 Stool Rotavirus A PCR Not Detected (NotDetected) 10/18/22 19:25 Stl Adenov F 40/41 PCR Not Detected (NotDetected) 10/18/22 19:25 Stool Astrovirus (PCR) Not Detected (NotDetected) 10/18/22 19:25 Stool Campylobacter PCR Not Detected (NotDetected) 10/18/22 19:25 Stl C. diff Tox B Gene Negative Cdiff Gene (Neg) 10/18/22 19:25 Stool Cryptosporidium PCR Not Detected (NotDetected) 10/18/22:25 Stl E.coli Shiga Tox PCR Not Detected (NotDetected) 10/18/22 19:25 Stl Enterotoxigenic E PCR Not Detected (NotDetected) 10/18/22 19:25 Stool EPEC (PCR) Not Detected (NotDetected) 10/18/22 19:25 Stool EAEC (PCR) Not Detected (NotDetected) 10/18/22 19:25 Stl E. histolytica PCR Not Detected (NotDetected) 10/18/22 19:25 Stool Giardia Lamblia PCR Not Detected (NotDetected) 10/18/22 19:25 Stool Salmonella PCR Not Detected (NotDetected) 10/18/22 19:25 Stool Sapovirus (PCR) Not Detected (NotDetected) 10/18/22 19:25 Stl P. shigelloides PCR Not Detected (NotDetected) 10/18/22 19:25 Stl Shigella/EIEC PCR Not Detected (NotDetected) 10/18/22 19:25 St Y.enterocolitica PCR Not Detected (NotDetected) 10/18/22 19:25 Stool Vibrio (PCR) Not Detected (NotDetected) 10/18/22 19:25 Stl Vibrio cholerae PCR Not Detected (NotDetected) 10/18/22 19:25 Stl Norovirus GI/GII PCR Not Detected (NotDetected) 10/18/22 19:25 PG Care Time/CCT Total # of Minutes Spent Total Time Spent with Patient: Total time spent is greater than 50% in coordination of care (as documented) at patient's floor/unit and/or counseling patient: Coding Level of Care Code 93192 INT INP/OBS CARE MIN Diagnoses Diarrhea R19.7 Acute hyponatremia E87.1 CAD (coronary artery disease) I25.10
[2022-10-19] MEDS ORDERED: ONDANSETRON INJ 2 MG/ML 2 ML VIAL IV PRN (01:41)
[2022-10-19] MEDS ORDERED: ACETAMINOPHEN 325 MG TAB PO PRN (01:41)
[2022-10-19 02:02] LABS: Magnesium 1.9 mg/dl (1.7-2.4)
[2022-10-19] MEDS: SODIUM CHLORIDE 0.9% 1000ML 1,000 ML IV SCH ×2 (04:30→13:02)
[2022-10-19 05:17] LABS: Hematocrit (blood only) 37.7 % (42.0-52.0); Hemoglobin 13.5 g/dl (14.0-18.0); Mean Corpuscular Hemoglobin 29.7 pg (25.0-34.0); Mean Corpuscular Hgb Conc 35.8 g/dL (32.0-36.0); Mean Platelet Volume 9.3 fL (9.4-12.4); Platelet Count 225 K/uL (130-400); RDW Coefficient of Variation 12.8 % (11.5-14.5); RDW Standard Deviation 38.6 fL (36.4-46.3); Red Blood Count 4.54 M/uL (4.70-6.10); White Blood Count 7.31 K/ul (4.8-10.8)
[2022-10-19 05:41] LABS: BUN Creatinine Ratio 12.9 (10-20); Calcium 8.6 mg/dl (8.6-10.3); Creatinine Clr Calc Pharmacy 95.6 ml/min; Est GFR (African American) 99.5 ml/min; Est GFR (Non-African American) 85.8 ml/min; Potassium 3.9 mmol/L (3.5-5.1)
--- NOTE | 2022-10-19 08:23 | Hospitalist Progress Note ---
Date of Service October 19, 2022 Assessment & Plan (1) Diarrhea: Plan: Etiology uncertain. Infectious workup is negative including c. diff. Patient feels the diarrhea is improving - possibly started after eating at [employer]. Aside from hyponatremia, electrolytes are within normal range. No SHRUTI or evidence of severe dehydration -Monitor stool output -Immodium if persists (2) Acute hyponatremia: Plan: Ek=[id number], asymptomatic. Likely secondary to volume loss from diarrhea -NSS given in ER - continue NSS at 125mL/hr overnight -Repeat chemistry in AM, shows improved sodium (3) CAD (coronary artery disease): Plan: Chronic. Stable. Had cardiac catheterization performed 06/04/20 which revealed non-obstructive disease -Continue ASA, Metoprolol and Crestor Admission and Anticipated Discharge Date Admission Date: October 18, 2022 Results & Data Results & Data Vital Signs (Past 12 Hours) Vital Signs Pulse Resp BP Pulse Ox O2 Del Method 10/18/22 22:10 79 18 170/106 H 99 Room Air PG Care Time/CCT Total # of Minutes Spent Total Time Spent with Patient: Total time spent is greater than 50% in coordination of care (as documented) at patient's floor/unit and/or counseling patient: Coding Diagnoses Diarrhea R19.7 Acute hyponatremia E87.1 CAD (coronary artery disease) I25.10
[2022-10-19] MEDS ORDERED: METOPROLOL SUCC 50MG EXT REL TAB PO SCH (09:00)
[2022-10-19] MEDS ORDERED: ASPIRIN 81 MG ECTAB PO SCH (09:00)
[2022-10-19] MEDS ORDERED: ROSUVASTATIN CALCIUM 10 MG TAB PO SCH (09:00)
--- NOTE | 2022-10-19 17:21 | Electrocardiogram Report ---
Test Reason : Blood Pressure : / mmHG Vent. Rate : 084 BPM Atrial Rate : 084 BPM P-R Int : 138 ms QRS Dur : 080 ms QT Int : 380 ms P-R-T Axes : 008 002 087 degrees QTc Int : 449 ms Normal sinus rhythm Nonspecific ST and T wave abnormality Abnormal ECG When compared with ECG of 28-MAY-2020 12:20, Premature atrial complexes are no longer Present T wave amplitude has decreased in Inferior leads Nonspecific T wave abnormality, worse in Lateral leads Confirmed by Ryan Lin ([id number]) on 10/19/2022 5:21:33 PM Referred By: Mason Martins Confirmed By:Ryan Lin
--- NOTE | 2022-10-19 17:24 | Discharge Summary ---
Date of Service October 19, 2022 Admission HPI Per Admitting Provider Sandro Gonzalez is a pleasant 66-year-old male with history of coronary artery disease, hypertension presenting with several days of profuse watery diarrhea as well as mild hyponatremia. Patient reports that he has had watery, nonbloody/nonmucoid diarrhea ongoing for the last 3 days. He has also had nausea with several episodes of nonbloody/nonbilious emesis. He has had decreased oral intake. He started feeling lightheaded with bilateral arm weakness which prompted him to see his PCP today. His PCP sent him to the ER. Of note, patient has a history of similar presentation in the past with profuse diarrhea. He was found to be profoundly dehydrated with severe hyponatremia, sodium at that time = 110. Otherwise, patient denies fever, chills, chest pain, cough, shortness of breath. Denies abdominal pain or tenderness. Denies urinary complaints. He feels that the diarrhea is improving slightly. He is passing gas. No additional complaints at this time Principal Diagnosis diarrheal illness resolved Discharge Exam Awake alert appropriate no apparent distress. Does have a systolic murmur consistent with his aortic valve replacement Lungs are clear abdomen NABS soft and nontender Discharge Data Allergies Allergy/AdvReac Type Severity Reaction Status Date / Time amiodarone AdvReac Severe flat line Verified 10/18/22 23:32 Milk Containing Products AdvReac Mild GAS Verified 10/18/22 16:11 (Dairy) DIARRHEA [Milk Containing Products] naproxen [From Naprosyn] AdvReac Unknown stomach Verified 10/18/22 16:11 PAIN ondansetron [From Zofran] AdvReac Unknown disoriented Verified 10/18/22 16:11 /confusion Consultations 10/18/22 23:19 ED Decision to Admit Stat Ordered Studies Stool PCR is unremarkable as well as C. difficile Hospital Course (1) Diarrhea: Etiology uncertain. Infectious workup is negative including c. diff. Patient feels the diarrhea is improving - possibly started after eating at [employer]. Aside from hyponatremia, electrolytes are within normal range. No SHRUTI or evidence of severe dehydration -Monitor stool output -Immodium if persists (2) Acute hyponatremia: Fo=179, asymptomatic. Likely secondary to volume loss from diarrhea -NSS given in ER - continue NSS at 125mL/hr overnight -Repeat chemistry in AM, shows improved sodium (3) CAD (coronary artery disease): Chronic. Stable. Had cardiac catheterization performed 06/04/20 which revealed non-obstructive disease patient had a bicuspid aortic valve replacement with a tissue valve in 2020 as well as a mitral valve repair at that time. This was complicated by post procedure A-fib flutter which was chemically cardioverted with amiodarone postprocedure he had some reduction in ejection fraction but this improved and his last echocardiogram to an EF of 50 to 55%. He typically f jeanine with Dr. Travis at the [facility] system in [place] -Continue ASA, Metoprolol and Crestor Total Time Total Time Spent Total Time Spent (In Minutes): It required greater than 30 minutes to prepare this patient for discharge Discharge Plan Discharge Items Patient Disposition: Home - Self-Care Reason For Visit: DIARRHEA, HYPONATREMIA Discharge Diagnosis: Hyponatremia resolved diarrhea resolved Activity: Resume your previous activity Non-emergency contact: Primary Care Provider Call non-emergency contact if: your symptoms worsen Follow-up/Referrals: Aiden Foster, [Primary Care Provider] - Diet: Regular Addtl Attending Provider Instructions: please pay attention to your diet and track if anything causes diarrhea in the future if you find yourself becoming lethargic, consider getting some blood work drawn Addtl Nanny Caregiver Provider Instructions: you stool was tested for infection and found to be negative Pending Studies at Discharge: No Stand-Alone Forms: [employer], Smoking Cessation Medications and DC Order Prescriptions: Continued sildenafil 50 mg tablet 50 mg PO DAILY PRN (Reason: sexual activity) Qty: 10 6RF Rx Instructions: administer 30 minutes to 4 hours before activity aspirin 81 mg tablet,chewable 81 mg PO DAILY Qty: 30 2RF metoprolol succinate 50 mg tablet extended release 24 hr 50 mg PO DAILY rosuvastatin [Crestor] 10 mg tablet 10 mg PO DAILY Zyrtec 10 mg Capsule 10 mg PO Q3D PRN (Reason: Allergy Symptoms) Rx Instructions: 10/18/22 : THIS MED CURRENTLY ON HOLD. ascorbic acid (vitamin C) [Vitamin C] 1,000 mg Tablet 2,000 - 4,000 mg PO QAM amoxicillin 500 mg tablet 2,000 mg PO .UD Rx Instructions: TAKE THIS MED PRIOR TO EACH DENTAL APPOINTMENT Discharge Orders: Discharge Order (Routine); Ordered 10/19/22 Ordered By: Maksim Leyva Admission Data Admit Date/Time: 10/18/22 23:47 Attending Provider: Maksim Leyva Admit Provider: Karol Brown Primary Care Provider: Aiden Foster Other Providers: Karol Brown Other Interventions: Discharge Summary Assessment (RN) Last Done: 10/19/22 14:31 Coding Level of Care Code 32241 INP/OBS DISCH >30 MIN Diagnoses Diarrhea R19.7 Acute hyponatremia E87.1 CAD (coronary artery disease) I25.10
== END 2022-10-19 14:31 | disposition home or self-care (01) | DRG 392 ==
LOC: ED 17:08 → EDINP 23:47 → SUATTDRO 23:47 → EDINP 10-19 01:41